=== PATIENT | female | born 1985 | race Caucasian/White ===

== ENCOUNTER 2018-12-03 08:03 | Emergency (ER) | payer OTHER ==
[~2018-12-03] VITALS: Ht 157.5 cm; Wt 75.5 kg
[2018-12-03 08:11] VITALS: BP 119/75; TEMP 97.8
[2018-12-03] MEDS ORDERED: PROAIR HFA0.09 MG/AC IH (08:39)
[2018-12-03] MEDS ORDERED: NORCO 325 MG-51 TAB PO (08:54)
[2018-12-03 09:19] VITALS: PULSE 90
== END 2018-12-03 09:19 | disposition home or self-care (01) ==
LOC: COL.ER 08:03
DX: S52.121A Displaced fracture of head of right radius, initial encounter for closed fracture (principal); S63.501A Unspecified sprain of right wrist, initial encounter; J45.909 Unspecified asthma, uncomplicated; W19.XXXA Unspecified fall, initial encounter; Y92.009 Unspecified place in unspecified non-institutional (private) residence as the place of occurrence of the external cause
CPT/HCPCS: J1885; Q4050